=== PATIENT | male | born 1980 | race Caucasian/White ===

== ENCOUNTER 2017-01-21 20:43 | Emergency (ER) | payer SELFPAY ==
[~2017-01-21] VITALS: Ht 175.3 cm; Wt 86.0 kg
[~2017-01-21 20:43] MED LIST: MOBI15TA PO
[2017-01-21 20:44] VITALS: BP 185/92; PULSE 96; RESP 16; TEMP 98; O2SAT 96
[2017-01-21] MEDS ORDERED: DIVA250ER PO (21:16)
--- NOTE | 2017-01-21 21:27 | PD ---
HPI Chief Complaint: Psychiatric Symptoms Time Seen by Provider: 21:23 Travel History International Travel<30 days: No Contact w/Intl Traveler<30days: No Traveled to known affect area: No History of Present Illness HPI Patient comes in requesting psychiatric evaluation and possible refill of his medications. Patient states that he has not been his medications for approximately a month. Patient uncertain what his medications are supposed to be except for Depakote. Patient states he was getting his medications from [employer]. Patient states that he does this from time to time when he stops taking his medications as he starts feeling better and his medications make him "fat". Patient denies any homicidal or suicidal ideations though reports racing thoughts and going from feeling angry to calm. Patient states he is also supposed be on blood pressure medication but he stopped taking that as well because it made him feel sick. Denies any chest pain, shortness breath , fevers, nausea, vomiting, or abdominal pain. PFSH Past Medical History High Cholesterol: Yes Hypertension: Yes Social History Alcohol Use: No Tobacco Use: Yes (CIGARETTES, 1 PPD X 18 YEARS) Substance Use: No Allergies-Medications (Allergen,Severity, Reaction): Coded Allergies: No Known Allergies (Verified , 01/21/17) Reported Meds & Prescriptions Reported Meds & Active Scripts Active Active Prescriptions or Reported Medications Unobtainable Review of Systems Except as stated in HPI: all other systems reviewed are Neg Physical Exam Narrative GENERAL: Well-developed, well nourished, in no acute distress, and non-ill appearing. SKIN: Warm and dry. HEAD: Atraumatic. Normocephalic. EYES: Pupils equal and round. EOMI. No scleral icterus. No injection or drainage. ENT: No nasal bleeding or discharge. Mucous membranes pink and moist. NECK: Trachea midline. Supple. No nuclear rigidity. CARDIOVASCULAR: Regular rate and rhythm. No murmur appreciated. RESPIRATORY: No accessory muscle use. No respiratory distress. Clear to auscultation. Breath sounds equal bilaterally. MUSCULOSKELETAL: No obvious deformities. No clubbing. No cyanosis. No edema. Full range of motion. NEUROLOGICAL: Awake and alert. No obvious cranial nerve deficits. Motor grossly within normal limits. Normal speech. PSYCHIATRIC: Appropriate mood and affect; insight and judgment normal. Data Data Last Documented VS Vital Signs Date Time Temp Pulse Resp B/P Pulse Ox O2 Delivery O2 Flow Rate FiO2 01/21/17 22:26 72 16 154/66 97 Room Air 01/21/17 20:44 98.0 Orders Complete Blood Count With Diff (01/21/17 21:14) Comprehensive Metabolic Panel (01/21/17 21:14) Psych Screen (01/21/17 21:14) Drug Screen, Random Urine (01/21/17 21:14) Alcohol (Ethanol) (01/21/17 21:14) Salicylates (Aspirin) (01/21/17 21:14) Tylenol (Acetaminophen) (01/21/17 21:14) Valproic Acid (Depakene) (01/21/17 21:22) Labs Laboratory Tests Test 01/21/17 01/21/17 21:20 21:30 White Blood Count 9.0 TH/MM3 Red Blood Count 5.54 MIL/MM3 Hemoglobin 15.3 GM/DL Hematocrit 44.7 % Mean Corpuscular Volume 80.5 FL Mean Corpuscular Hemoglobin 27.7 PG Mean Corpuscular Hemoglobin 34.4 % Concent Red Cell Distribution Width 13.0 % Platelet Count 279 TH/MM3 Mean Platelet Volume 8.3 FL Neutrophils (%) (Auto) 58.8 % Lymphocytes (%) (Auto) 30.6 % Monocytes (%) (Auto) 6.3 % Eosinophils (%) (Auto) 3.2 % Basophils (%) (Auto) 1.1 % Neutrophils # (Auto) 5.3 TH/MM3 Lymphocytes # (Auto) 2.7 TH/MM3 Monocytes # (Auto) 0.6 TH/MM3 Eosinophils # (Auto) 0.3 TH/MM3 Basophils # (Auto) 0.1 TH/MM3 CBC Comment DIFF FINAL Differential Comment Sodium Level 139 MEQ/L Potassium Level 3.9 MEQ/L Chloride Level 104 MEQ/L Carbon Dioxide Level 28.3 MEQ/L Anion Gap 7 MEQ/L Blood Urea Nitrogen 15 MG/DL Creatinine 1.26 MG/DL Estimat Glomerular Filtration 65 ML/MIN Rate Random Glucose 102 MG/DL Calcium Level 9.1 MG/DL Total Bilirubin 0.3 MG/DL Aspartate Amino Transf 15 U/L (AST/SGOT) Alanine Aminotransferase 46 U/L (ALT/SGPT) Alkaline Phosphatase 71 U/L Total Protein 7.0 GM/DL Albumin 3.7 GM/DL Salicylates Level LESS THAN 1.7 MG/DL Acetaminophen Level LESS THAN 2.0 MCG/ML Valproic Acid (Depakene) Level 5 MCG/ML Ethyl Alcohol Level LESS THAN 3 MG/DL Urine Opiates Screen NEG Urine Barbiturates Screen NEG Urine Amphetamines Screen NEG Urine Benzodiazepines Screen NEG Urine Cocaine Screen NEG Urine Cannabinoids Screen NEG MDM Medical Decision Making Medical Screen Exam Complete: Yes Emergency Medical Condition: Yes Differential Diagnosis Bipolar, schizoaffective, adjustment disorder, electrolyte abnormality, medical noncompliance, other Narrative Course The patient has a prior history of hypertension and admits to noncompliance with their antihypertensive medications. The patient has no symptoms as well. The patient denied headache, changes in vision, nausea, vomiting, dizziness, weakness or loss of sensation. The patient denied and chest, back or abdominal pain. The patient also denied any shortness of breath, dyspnea on exertion, orthopnea or PND. The patient denies any edema to extremities. The patients blood pressures at time of medical clearance were at an acceptable level. I discussed with the patient the importance of continuing daily antihypertensive and to not skip doses or stop medications suddenly without instruction by their primary care physician. The patient was instructed to follow up and potential adjustment of blood pressure medications. Return warnings were given to the patient and the patient agreed with plan of care Patient was seen and examined. Labs were obtained and reviewed. Patient medically cleared for further treatment and evaluation by psych. Patient was evaluated by psych screener and was found to be stable follow-up as outpatient at [facility] for refill of his medications there. Patient in no obvious distress upon re-evaluation. All pertinent laboratory result(s) discussed with patient. Any questions/concerns in reference to patient diagnosis/condition discussed and clarified prior to patient's discharge. Reinforced sheer importance of close follow up with patient's primary physician or primary care clinic and [facility]. Instructed patient to return to ED immediately, if symptoms return/worsen. Pt showed understanding of above instructions. Further instructions and recommendations were detailed in discharge paperwork. Pt ambulated without difficulty out of ED at discharge. Diagnosis Primary Impression: Hypertension Qualified Code: I10 - Essential hypertension Referrals: [facility] Patient Instructions: Chronic Hypertension (ED), General Instructions Additional Instructions: Follow-up with your primary care physician this week for reevaluation of your blood pressure and possibly restarting your blood pressure medication. Follow- up with Lucian Eduardo for refills of your medication as discussed. Return to the emergency department if symptoms get worse. Scripts Unable to Obtain Active Prescriptions or Reported Meds Disposition: 01 DISCHARGE HOME Condition: Martin Guerra Jan 21, 2017 21:27
[2017-01-21 21:56] LABS: AUTOMATED NEUTROPHIL # 5.3 TH/MM3 (1.8-7.7); BASOPHIL # 0.1 TH/MM3 (0-0.2); BASOPHIL % 1.1 % (0.0-2.0); EOSINOPHIL # 0.3 TH/MM3 (0-0.4); EOSINOPHIL % 3.2 % (0.0-4.0); HEMATOCRIT 44.7 % (39.0-51.0); HEMO FLAGS DIFF FINAL; LYMPH % 30.6 % (9.0-44.0); LYMPHOCYTE # 2.7 TH/MM3 (1.0-4.8); MEAN CELL VOLUME 80.5 FL (80.0-100.0); MEAN CORPUSCULAR HEMOGLOBIN 27.7 PG (27.0-34.0); MEAN CORPUSCULAR HGB CONC 34.4 % (32.0-36.0); MONO % 6.3 % (0.0-8.0); NEUT % 58.8 % (16.0-70.0); PLATELET COUNT 279 TH/MM3 (150-450); RED BLOOD COUNT 5.54 MIL/MM3 (4.50-5.90)
[2017-01-21 22:06] LABS: ANION GAP 7 MEQ/L (5-15)
[2017-01-21 22:09] LABS: ACETAMINOPHEN LESS THAN 2.0 MCG/ML (10.0-30.0); ALKALINE PHOSPHATASE 71 U/L (45-117); ALT (GPT) 46 U/L (12-78); AST (GOT) 15 U/L (15-37); BICARBONATE 28.3 MEQ/L (21.0-32.0); BLOOD UREA NITROGEN 15 MG/DL (7-18); CHLORIDE 104 MEQ/L (98-107); GLOMERULAR FILTRATION RATE 65 ML/MIN (>89); POTASSIUM 3.9 MEQ/L (3.5-5.1); SODIUM (NA) 139 MEQ/L (136-145); TOTAL BILIRUBIN ADULT 0.3 MG/DL (0.2-1.0)
[2017-01-21 22:11] LABS: AMPHETAMINE, URINE NEG (NEG); BARBITURATES, URINE NEG (NEG); COCAINE, URINE NEG (NEG)
[2017-01-21 22:26] VITALS: BP 154/66; PULSE 72; RESP 16; O2SAT 97
== END 2017-01-22 05:03 | disposition home or self-care (01) ==
LOC: NEPA 20:43
DX: I10 Essential (primary) hypertension (principal); E78.00 Pure hypercholesterolemia, unspecified; F17.200 Nicotine dependence, unspecified, uncomplicated
CPT/HCPCS: 80053; 80164; 80307; 85025; 99284

== ENCOUNTER 2017-01-29 15:19 | Emergency (ER) | payer SELFPAY ==
[~2017-01-29] VITALS: Ht 175.3 cm; Wt 84.7 kg
[2017-01-29 15:32] VITALS: PULSE 89; RESP 16; TEMP 98.7; O2SAT 96
--- NOTE | 2017-01-29 16:24 | PD ---
HPI . poison amilcar exposure through the air Chief Complaint: Skin Problem Time Seen by Provider: 16:24 Travel History International Travel<30 days: No Contact w/Intl Traveler<30days: No Traveled to known affect area: No History of Present Illness HPI 36 are old male here with complaints of having poison amilcar exposure through the air. 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 Patient tells me that the area was itchy and he decided to scratch and search for some chigger bugs. He decided to put bleach into his skin to kill the so called bugs. He is here requesting steroid injections so that he does not get the poison amilcar into his lungs. He is using some type of topical cream to cover up the 3 lesions. When he cleaned them off there are 3 lesions (pustules) that are erythematous. There is no actual abscess formation. These appear to be small areas of cellulitis. He is c/o itching all over. There is no visible rash elsewhere. PFSH Past Medical History High Cholesterol: Yes Hypertension: Yes Social History Alcohol Use: No Tobacco Use: Yes (CIGARETTES, 1 PPD X 18 YEARS) Substance Use: Yes Allergies-Medications (Allergen,Severity, Reaction): Coded Allergies: No Known Allergies (Verified , 01/29/17) Reported Meds & Prescriptions Reported Meds & Active Scripts Active Bactrim DS (Sulfamethoxazole-Trimethoprim) 800-160 Mg Tab 1 Tab PO BID Bactroban Topical (Mupirocin) 2% Oint 1 Appl TOPICAL BID Medrol Dosepak (Methylprednisolone) 4 Mg Dspk 4 Mg PO DIRECTED Per Pharmacist direction Reported Fluoxetine (Fluoxetine HCl) 10 Mg Tab Unknown Dose PO HS Depakote ER (Divalproex Sodium) 250 Mg Yoselin 250 Mg PO DAILY Review of Systems General / Constitutional: No: Fever Eyes: No: Visual changes HENT: No: Headaches Cardiovascular: No: Chest Pain or Discomfort Respiratory: No: Shortness of Breath Gastrointestinal: No: Abdominal Pain Genitourinary: No: Dysuria Musculoskeletal: No: Pain Skin: Positive Rash, Positive Itching, Positive Other (3 small pustules on left inner thigh) Neurologic: No: Weakness Psychiatric: No: Depression Endocrine: No: Polydipsia Hematologic/Lymphatic: No: Easy Bruising Physical Exam Narrative GENERAL: AAO x 3, no acute distress, Well-nourished, well-developed patient. SKIN: Warm and dry. No visible rashes or bruising. 3 small pustules to the left inner thigh with surrounding erythema. HEAD: Normocephalic and atraumatic. EYES: No scleral icterus. No injection or drainage. ENT: No nasal drainage noted. Mucous membranes pink. Airway patent. NECK: Supple, trachea midline. No JVD. CARDIOVASCULAR: Regular rate and rhythm without murmurs, gallops, or rubs. RESPIRATORY: Breath sounds equal bilaterally. No accessory muscle use. No rhonchi or rales. GASTROINTESTINAL: Abdomen soft, non-tender, nondistended. EXTREMITIES: No cyanosis or edema. BACK: Nontender without obvious deformity. No CVA tenderness. PSYCH: AAO x 3, normal affect. Data Data Last Documented VS Vital Signs Date Time Temp Pulse Resp B/P Pulse Ox O2 Delivery O2 Flow Rate FiO2 01/29/17 15:32 98.7 89 16 96 Room Air [facility] Medical Decision Making Medical Screen Exam Complete: Yes Emergency Medical Condition: Yes Medical Record Reviewed: Yes Differential Diagnosis cellulitis, contact dermatitis, less likely abscess Narrative Course 36 are old male here with complaints of having poison amilcar exposure through the air. 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 Patient tells me that the area was itchy and he decided to scratch and search for some chigger bugs. He decided to put bleach into his skin to kill the so called bugs. He is here requesting steroid injections so that he does not get the poison amilcar into his lungs. He is using some type of topical cream to cover up the 3 lesions. When he cleaned them off there are 3 lesions (pustules) that are erythematous. There is no actual abscess formation. These appear to be small areas of cellulitis. He is c/o itching all over. There is no visible rash elsewhere. Patient seen and examined. He has 3 small pustules on his left inner thigh. There is no other rash anywhere on his body. I will treated with a course of Bactrim and Bactroban for cellulitis. I will also treat him with a Medrol Dosepak for possible contact dermatitis with his complaints of itching. I think some of this is psychosomatic. He has been advised follow up with primary care provider for further workup and treatment. Patient insisting to nurse that he wants steroid injections. She discussed with him that we have provided oral steroids. Patient verbalized understanding of instructions, questions were answered, and thanked me for their care. I advised them if their condition worsens, please return to the nearest emergency room for further care. Diagnosis Primary Impression: Cellulitis of left thigh Additional Impression: Contact dermatitis Qualified Code: L23.9 - Allergic contact dermatitis, unspecified trigger Additional Instructions: Please return to emergency department if your symptoms return or worsen. Follow up with your primary care provider. Take medications as prescribed. Med/Other Pt SpecificInfo: Prescription(s) given Scripts Sulfamethoxazole-Trimethoprim (Bactrim DS)800-160 Mg Tab1 Tab PO BID #20 TAB Ref 0 Prov:Carolyn Nolan MD 01/29/17 Mupirocin Topical (Bactroban Topical)2% Oint1 Appl TOPICAL BID #1 TUBE Ref 0 Prov:Carolyn Nolan MD 01/29/17 Methylprednisolone Dosepak (Medrol Dosepak)4 Mg Dspk4 Mg PO DIRECTED #1 DSPK Ref 0 Per Pharmacist direction Prov:Carolyn Nolan MD 01/29/17 Disposition: 01 DISCHARGE HOME Condition: Stable Liliam Camara Jan 29, 2017 16:24
[2017-01-29] MEDS ORDERED: FLUO10TA PO (16:27)
[2017-01-29] MEDS ORDERED: DIVA250ER PO (16:27)
[2017-01-29] MEDS ORDERED: BACT800T5 PO (16:35)
[2017-01-29] MEDS ORDERED: MEDR4PAK PO (16:35)
[2017-01-29] MEDS ORDERED: BACT2OIN TOPICAL (16:35)
== END 2017-01-29 16:51 | disposition home or self-care (01) ==
LOC: PHED 15:19 → PHEFT 16:51
DX: L03.116 Cellulitis of left lower limb (principal); L23.9 Allergic contact dermatitis, unspecified cause; I10 Essential (primary) hypertension; E78.00 Pure hypercholesterolemia, unspecified; F17.200 Nicotine dependence, unspecified, uncomplicated
CPT/HCPCS: 99282

== ENCOUNTER 2017-03-07 16:04 | Emergency (ER) | payer SELFPAY ==
[~2017-03-07] VITALS: Ht 175.3 cm; Wt 84.7 kg
[~2017-03-07 16:04] MED LIST changes: +BACT2OIN TOPICAL; +BACT800T5 PO; +DIVA250ER PO; +FLUO10TA PO; +MEDR4PAK PO; -MOBI15TA PO
[2017-03-07 16:09] VITALS: BP 157/105; PULSE 100; RESP 18; TEMP 98.1; O2SAT 97
--- NOTE | 2017-03-07 16:27 | PD ---
HPI Chief Complaint: Cold / Flu Symptoms Time Seen by Provider: 16:16 Travel History International Travel<30 days: No Contact w/Intl Traveler<30days: No Traveled to known affect area: No History of Present Illness HPI 36-year-old male presents to the emergency Department with complaints of upper respiratory infection symptoms including sore throat, postnasal drip, sinus congestion and headache, and productive cough. Patient states it's been going on since yesterday. He is a smoker of one pack per day. 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 Patient is felt like "poop" since waking up today. He denies nausea, vomiting, or diarrhea. He has no chest pain or shortness of breath. He has no known drug allergies. PFSH Past Medical History Bipolar Disorder: Yes (ANGER ISSUES ALSO PER PT) Cardiovascular Problems: Yes (HIGH CHOLESTEROL, HTN) High Cholesterol: Yes Hypertension: Yes Immunizations Current: Yes Social History Alcohol Use: No Tobacco Use: Yes (/2 PPD +DIP) Substance Use: Yes Allergies-Medications (Allergen,Severity, Reaction): Coded Allergies: No Known Allergies (Verified , 01/29/17) Reported Meds & Prescriptions Reported Meds & Active Scripts Active Flonase Allergy Relief Children Nasal [place] (Fluticasone Nasal [place]) 50 Mcg/ Act [place] 2 [place] EACH NARE DAILY 50 mcg/spray Amoxicillin 875 Mg Tab 875 Mg PO BID Reported Strattera (Atomoxetine HCl) 10 Mg Cap 10 Mg PO DAILY Depakote ER (Divalproex Sodium) 250 Mg Yoselin 250 Mg PO DAILY Review of Systems Except as stated in HPI: all other systems reviewed are Neg General / Constitutional: Positive: Chills, No: Fever Eyes: No: Visual changes HENT: Positive: Headaches, Sore Throat, Rhinitis, Rhinorrhea, Congestion, No: Vertigo, Lightheadedness, Nosebleed, Neck Stiffness, Neck Pain, Gingival Bleeding, Dental Difficulties, Ear Discharge, Earache Cardiovascular: No: Chest Pain or Discomfort Respiratory: Positive: Cough, No: Shortness of Breath, Wheezing, Sneezing Gastrointestinal: No: Nausea, Vomiting, Diarrhea, Abdominal Pain Genitourinary: No: Dysuria Musculoskeletal: No: Pain Skin: No Rash Neurologic: No: Weakness Psychiatric: No: Depression Endocrine: No: Polydipsia Hematologic/Lymphatic: No: Easy Bruising Physical Exam Narrative GENERAL: Patient appears in no acute distress. SKIN: Warm and dry. Normal color. Normal turgor. HEAD: Atraumatic. Normocephalic. Patient has moderate sinus tenderness in both frontal and maxillary sinuses. EYES: Pupils equal and round. No scleral icterus. No injection or drainage. ENT: No nasal bleeding or discharge. Mucous membranes pink and moist. TMs are clear bilaterally. Patient has mild swelling and cobblestoning in the posterior pharynx with moderate injection and postnasal drip noted. Uvula is midline. No significant tonsillitis. NECK: Trachea midline. Neck is supple without significant lymphadenopathy or tenderness. CARDIOVASCULAR: Regular rate and rhythm. RESPIRATORY: No accessory muscle use. Coarse breath sounds throughout to auscultation. Breath sounds equal bilaterally. MUSCULOSKELETAL: Extremities without clubbing, cyanosis, or edema. No obvious deformities. NEUROLOGICAL: Awake and alert. No obvious cranial nerve deficits. Motor grossly within normal limits. Five out of 5 muscle strength in the arms and legs. Normal speech. PSYCHIATRIC: Appropriate mood and affect; insight and judgment normal. Data Data Last Documented VS Vital Signs Date Time Temp Pulse Resp B/P Pulse Ox O2 Delivery O2 Flow Rate FiO2 03/07/17 16:09 98.1 100 18 157/105 97 MDM Medical Decision Making Medical Screen Exam Complete: Yes Emergency Medical Condition: Yes Differential Diagnosis Upper extremity infection. Pharyngitis. Sinusitis. Postnasal drip. Cough. Narrative Course Patient is medically stable at time of exam. Patient will be treated for sinusitis with amoxicillin 875 twice a day 10 days. Also start Flonase nasal spray 2 sprays each nostril daily. Work note is given. Patient should follow with primary care physician or return to emergency Department with worsening symptoms as needed. Patient is recommended to quit smoking as soon as possible. Diagnosis Primary Impression: Sinusitis, acute Qualified Code: J01.40 - Acute non-recurrent pansinusitis Referrals: [facility] Departure Forms: Work Release Enter return to work date: March 08, 2017 Additional Instructions: Patient will be treated for sinusitis with amoxicillin 875 twice a day 10 days. Also start Flonase nasal spray 2 sprays each nostril daily. Work note is given. Patient should follow with primary care physician or return to emergency Department with worsening symptoms as needed. Patient is recommended to quit smoking as soon as possible. Med/Other Pt SpecificInfo: Prescription(s) given Scripts Fluticasone Nasal [place] (Flonase Allergy Relief Children Nasal [place])50 Mcg/Act Spray2 [place] EACH NARE DAILY #1 BOTTLE 50 mcg/spray Prov:Kiarra Ramirez DO 03/07/17 Amoxicillin 875 Mg [id number] Mg PO BID #20 TAB Prov:Kiarra Ramirez DO 03/07/17 Disposition: 01 DISCHARGE HOME Condition: Stable Alan Rhodes March 07, 2017 16:27
[2017-03-07] MEDS ORDERED: AMOX875T PO (16:28)
[2017-03-07] MEDS ORDERED: FLUT1SPR9 EACH NARE (16:28)
[2017-03-07] MEDS ORDERED: ATOM10 PO (16:28)
== END 2017-03-07 16:40 | disposition home or self-care (01) ==
LOC: PHEFT 16:04
DX: J01.90 Acute sinusitis, unspecified (principal); F17.210 Nicotine dependence, cigarettes, uncomplicated; I10 Essential (primary) hypertension; E78.00 Pure hypercholesterolemia, unspecified
CPT/HCPCS: 99283

== ENCOUNTER 2017-04-25 13:27 | Emergency (ER) | payer OTHER ==
[~2017-04-25] VITALS: Ht 175.3 cm; Wt 82.2 kg
[~2017-04-25 13:27] MED LIST changes: +AMOX875T PO; +ATOM10 PO; -BACT2OIN TOPICAL; -BACT800T5 PO; -FLUO10TA PO; +FLUT1SPR9 EACH NARE; -MEDR4PAK PO
[2017-04-25 13:30] VITALS: BP 140/94; PULSE 89; RESP 18; TEMP 98.2; O2SAT 94
[2017-04-25] MEDS ORDERED: VENTAER INH (14:06)
[2017-04-25] MEDS ORDERED: BENZ100 PO (14:06)
--- NOTE | 2017-04-25 14:07 | PD ---
HPI Chief Complaint: Respiratory Symptoms Time Seen by Provider: 13:57 Travel History International Travel<30 days: No Contact w/Intl Traveler<30days: No Traveled to known affect area: No History of Present Illness HPI 36-year-old male presents emergency department for evaluation of cough and low back pain. Symptom onset 3 days ago. He reports a low back pain is chronic. He reports roommate with similar upper respiratory symptoms. He reports the cough is nonproductive. He denies fever or chills. Associated symptoms nasal congestion and mild sore throat. He reports he had an episode of wheezing and shortness of breath yesterday with coughing episode. The symptoms have improved today. He is a smoker. He denies history of asthma who reports he used albuterol inhalers in the past with respiratory infections. PFSH Past Medical History Bipolar Disorder: Yes (ANGER ISSUES ALSO PER PT) Cardiovascular Problems: Yes (HIGH CHOLESTEROL, HTN) High Cholesterol: Yes Hypertension: Yes Immunizations Current: Yes Influenza Vaccination: No Social History Alcohol Use: Yes (WEEKENDS) Tobacco Use: Yes (2PPD) Substance Use: Yes Allergies-Medications (Allergen,Severity, Reaction): Coded Allergies: No Known Allergies (Verified , 04/25/17) Reported Meds & Prescriptions Reported Meds & Active Scripts Active No Active Prescriptions or Reported Medications Review of Systems Except as stated in HPI: all other systems reviewed are Neg General / Constitutional: No: Fever Physical Exam Narrative GENERAL: Well-nourished, well-developed patient. No acute distress. SKIN: Focused skin assessment warm/dry. HEAD: Normocephalic. EYES: No scleral icterus. No injection or drainage. NECK: Supple, trachea midline. No JVD or lymphadenopathy. CARDIOVASCULAR: Regular rate and rhythm without murmurs, gallops, or rubs. RESPIRATORY: Breath sounds equal bilaterally. No accessory muscle use. No wheezing rhonchi or rales. GASTROINTESTINAL: Abdomen soft, non-tender, nondistended. MUSCULOSKELETAL: No cyanosis, or edema. BACK: without obvious deformity. No CVA tenderness. Bilateral lumbar tenderness. No midline spinal tenderness. Data Data Last Documented VS Vital Signs Date Time Temp Pulse Resp B/P Pulse Ox O2 Delivery O2 Flow Rate FiO2 04/25/17 13:30 98.2 89 18 140/94 94 MDM Medical Decision Making Medical Screen Exam Complete: Yes Emergency Medical Condition: Yes Differential Diagnosis Viral bronchitis, URI, chronic low back pain Narrative Course 36-year-old male presents emergency department for evaluation of nonproductive cough 3 days. He reports he had an episode last night of some shortness of breath, wheezing during coughing episode. He reports using albuterol inhalers in the past with a first-degree infections. Patient is smoker. Patient's physical exam is reassuring. He appears to have viral URI. He does have some bilateral lumbar or spinous muscle tenderness he reports this is chronic. Diagnosis Primary Impression: URI (upper respiratory infection) Qualified Code: J06.9 - Upper respiratory tract infection, unspecified type Referrals: [facility] Benzonatate (Tessalon Perles)100 Mg [id number] Mg PO TID PRN (COUGH) #15 CAP Ref 0 Prov:Lisa Aaron 04/25/17 Albuterol 18 GM Inh (Ventolin Hfa 18 GM Inh)90 Mcg/Act Aer2 Puff INH Q4H PRN ( SHORTNESS OF BREATH) #1 INHALER Ref 0 Prov:Lisa Aaron 04/25/17 Disposition: 01 DISCHARGE HOME Condition: Stable Lisa Aaron Apr 25, 2017 14:07
== END 2017-04-25 14:18 | disposition home or self-care (01) ==
LOC: PHEFT 13:27
DX: J06.9 Acute upper respiratory infection, unspecified (principal); M54.5 Low back pain; G89.29 Other chronic pain; F31.9 Bipolar disorder, unspecified; I10 Essential (primary) hypertension; E78.00 Pure hypercholesterolemia, unspecified; F17.210 Nicotine dependence, cigarettes, uncomplicated
CPT/HCPCS: 99284

== ENCOUNTER 2017-05-09 00:27 | Emergency (ER) | payer SELFPAY ==
[~2017-05-09] VITALS: Ht 175.3 cm; Wt 82.8 kg
[~2017-05-09 00:27] MED LIST changes: -AMOX875T PO; -ATOM10 PO; +BENZ100 PO; -DIVA250ER PO; -FLUT1SPR9 EACH NARE; +VENTAER INH
[2017-05-09 00:30] VITALS: BP 142/92; PULSE 101; RESP 20; TEMP 98.1; O2SAT 97
[2017-05-09] MEDS ORDERED: SODIUM CHLOR 0.9% 1000 ML INJ 1,000 ML IV SCH (00:49)
--- NOTE | 2017-05-09 00:53 | PD ---
HPI Chief Complaint: Flank/Kidney Pain Time Seen by Provider: 00:36 Travel History International Travel<30 days: No Contact w/Intl Traveler<30days: No Traveled to known affect area: No History of Present Illness HPI 36 years old male complains of right low back pain. Patient states that the pain started 2 days ago. Patient stated sharp stabbing pain localized to right low back area. Patient states the pain radiates to the right low quadrant of the abdomen. Patient states that he has intermittent nausea vomiting with the pain. Patient denies any dysuria or frequency. Patient denies any fever chills. Patient states that he has history kidney stone many years ago. On a scale of 1-10 the pain is a 10. PFSH Past Medical History Bipolar Disorder: Yes (ANGER ISSUES ALSO PER PT) Cardiovascular Problems: Yes (HIGH CHOLESTEROL, HTN) High Cholesterol: Yes Hypertension: Yes Immunizations Current: Yes Tetanus Vaccination: < 5 Years Influenza Vaccination: No Social History Alcohol Use: Yes (Occasionally) Tobacco Use: Yes (1-2PPD) Substance Use: Yes ("Marijuana occasionally") Allergies-Medications (Allergen,Severity, Reaction): Coded Allergies: No Known Allergies (Verified , 05/09/17) Reported Meds & Prescriptions Reported Meds & Active Scripts Active Tessalon Perles (Benzonatate) 100 Mg Cap 200 Mg PO TID PRN Ventolin Hfa 18 GM Inh (Albuterol Sulfate) 90 Mcg/Act Aer 2 Puff INH Q4H PRN Review of Systems General / Constitutional: No: Fever Eyes: No: Visual changes HENT: No: Headaches Cardiovascular: No: Chest Pain or Discomfort Respiratory: No: Shortness of Breath Gastrointestinal: Positive: Nausea, Vomiting, Abdominal Pain Genitourinary: No: Dysuria Musculoskeletal: No: Pain Skin: No Rash Neurologic: No: Weakness Psychiatric: No: Depression Endocrine: No: Polydipsia Hematologic/Lymphatic: No: Easy Bruising Physical Exam Narrative GENERAL: Well-nourished, well-developed patient. SKIN: Focused skin assessment warm/dry. HEAD: Normocephalic. EYES: No scleral icterus. No injection or drainage. NECK: Supple, trachea midline. No JVD or lymphadenopathy. CARDIOVASCULAR: Regular rate and rhythm without murmurs, gallops, or rubs. RESPIRATORY: Breath sounds equal bilaterally. No accessory muscle use. GASTROINTESTINAL: Abdomen soft, nondistended. Patient has mild tenderness on palpation right lower quadrant of the abdomen. No rebound tenderness. No mass. MUSCULOSKELETAL: No cyanosis, or edema. BACK: Patient has moderate tenderness on palpation right lower lumbar area, without obvious deformity. No CVA tenderness. Neurologic exam normal. Data Data Last Documented VS Vital Signs Date Time Temp Pulse Resp B/P Pulse Ox O2 Delivery O2 Flow Rate FiO2 05/09/17 01:00 18 96 Room Air 05/09/17 00:30 98.1 101 142/92 Orders Basic Metabolic Panel (Bmp) (05/09/17 00:49) Complete Blood Count With Diff (05/09/17 00:49) Urinalysis - C+S If Indicated (05/09/17 00:49) Ct Abd/Pel W/O Iv Contrast (05/09/17 00:49) Iv Access Insert/Monitor (05/09/17 00:49) Ecg Monitoring (05/09/17 00:49) Oximetry (05/09/17 00:49) Ondansetron Inj (Zofran Inj) (05/09/17 01:00) Sodium Chlor 0.9% 1000 Ml Inj (Ns 1000 M (05/09/17 00:49) Ketorolac Inj (Toradol Inj) (05/09/17 01:00) Morphine Inj (Morphine Inj) (05/09/17 01:15) Labs Laboratory Tests Test 05/09/17 01:00 White Blood Count 9.6 TH/MM3 Red Blood Count 5.77 MIL/MM3 Hemoglobin 15.5 GM/DL Hematocrit 46.5 % Mean Corpuscular Volume 80.7 FL Mean Corpuscular Hemoglobin 26.9 PG Mean Corpuscular Hemoglobin 33.3 % Concent Red Cell Distribution Width 12.9 % Platelet Count 293 TH/MM3 Mean Platelet Volume 8.9 FL Neutrophils (%) (Auto) 60.7 % Lymphocytes (%) (Auto) 25.9 % Monocytes (%) (Auto) 8.1 % Eosinophils (%) (Auto) 2.8 % Basophils (%) (Auto) 2.5 % Neutrophils # (Auto) 5.8 TH/MM3 Lymphocytes # (Auto) 2.5 TH/MM3 Monocytes # (Auto) 0.8 TH/MM3 Eosinophils # (Auto) 0.3 TH/MM3 Basophils # (Auto) 0.2 TH/MM3 CBC Comment DIFF FINAL Differential Comment Urine Color YELLOW Urine Turbidity CLEAR Urine pH 5.5 Urine Specific [place] 1.025 Urine Protein NEG mg/dL Urine Glucose (UA) NEG mg/dL Urine Ketones NEG mg/dL Urine Occult Blood LARGE Urine Nitrite NEG Urine Bilirubin NEG Urine Leukocyte Esterase NEG Urine RBC 15-19 /hpf Urine WBC 3-5 /hpf Urine Squamous Epithelial 0-5 /hpf Cells Urine Hyaline Casts 0-2 /lpf Urine Mucus MOD /lpf Microscopic Urinalysis Comment CULT NOT INDICATED Sodium Level 143 MEQ/L Potassium Level 4.1 MEQ/L Chloride Level 111 MEQ/L Carbon Dioxide Level 24.5 MEQ/L Anion Gap 8 MEQ/L Blood Urea Nitrogen 13 MG/DL Creatinine 1.20 MG/DL Estimat Glomerular Filtration 69 ML/MIN Rate Random Glucose 94 MG/DL Calcium Level 9.0 MG/DL [facility] Medical Decision Making Medical Screen Exam Complete: Yes Emergency Medical Condition: Yes Interpretation(s) Last Impressions Abdomen/Pelvis CT 05/09/17 0049 Signed Impressions: Service Date/Time: Tuesday, May 09, 2017 01:03 - CONCLUSION: 1. Minimal obstructive uropathy on the left related to a distal ureteral calculus. 2. Small scattered nonobstructing bilateral renal stones. No ureteral stone or obstruction on the right. Aren Jain MD Differential Diagnosis Differential diagnosis including nephrolithiasis, pyelonephritis, musculoskeletal, appendicitis, colitis, UTI. Narrative Course 36 years old male with right low back pain and right low quadrant abdominal pain. History of kidney stone. Normal saline solution 1 25 cc an hour. Morphine 2 mg IV. Toradol 30 mg IV. Zofran 4 mg IV. Diagnosis Primary Impression: Right flank pain Additional Impression: Nephrolithiasis Patient Instructions: General Instructions Additional Instructions: Take medications as needed for pain. Follow-up with personal physician and urologist. Return if intractable pain, fever, persistent vomiting. Med/Other Pt SpecificInfo: Prescription(s) given Scripts Ondansetron Odt (Zofran Odt)4 Mg Tab4 Mg SL Q6HR PRN (Nausea/Vomiting) #10 TAB Ref 0 Prov:Robbie Roberts MD 05/09/17 Meloxicam (Mobic)15 Mg Tab15 Mg PO DAILY #20 TAB Ref 0 Prov:Robbie Roberts MD 05/09/17 Methocarbamol (Robaxin)750 Mg Bfs099 Mg PO QID #40 TAB Ref 0 Prov:Robbie Roberts MD 05/09/17 Tamsulosin (Flomax)0.4 Mg Cap0.4 Mg PO HS #10 CAP Ref 0 Prov:Robbie Roberts MD 05/09/17 Disposition: 01 DISCHARGE HOME Condition: Stable Robibe Roberts MD May 09, 2017 00:53
[2017-05-09 01:00] VITALS: BP 148/92; PULSE 90; RESP 18; O2SAT 96
[2017-05-09] MEDS ORDERED: MORPHINE SULFATE 4 MG/ML INJ IV PUSH ONE (01:00)
[2017-05-09] MEDS ORDERED: ONDANSETRON HCL 4 MG/2 ML VIAL IVP ONE (01:00)
[2017-05-09] MEDS ORDERED: KETOROLAC TROMETHAMINE 30 MG/ML (IVP) VIAL IVP ONE (01:00)
[2017-05-09 01:07] LABS: AUTOMATED NEUTROPHIL # 5.8 TH/MM3 (1.8-7.7); BASOPHIL # 0.2 TH/MM3 (0-0.2); BASOPHIL % 2.5 % (0.0-2.0); EOSINOPHIL # 0.3 TH/MM3 (0-0.4); EOSINOPHIL % 2.8 % (0.0-4.0); HEMATOCRIT 46.5 % (39.0-51.0); HEMO FLAGS DIFF FINAL; LYMPH % 25.9 % (9.0-44.0); LYMPHOCYTE # 2.5 TH/MM3 (1.0-4.8); MEAN CELL VOLUME 80.7 FL (80.0-100.0); MEAN CORPUSCULAR HEMOGLOBIN 26.9 PG (27.0-34.0); MEAN CORPUSCULAR HGB CONC 33.3 % (32.0-36.0); MONO % 8.1 % (0.0-8.0); NEUT % 60.7 % (16.0-70.0); PLATELET COUNT 293 TH/MM3 (150-450); RED BLOOD COUNT 5.77 MIL/MM3 (4.50-5.90); RED CELL DISTRIBUTION WIDTH 12.9 % (11.6-17.2); WHITE BLOOD COUNT 9.6 TH/MM3 (4.0-11.0)
[2017-05-09 01:09] LABS: BLOOD, URINE LARGE (NEG); GLUCOSE,URINE NEG (NEG); KETONE, URINE NEG (NEG); NITRITE,URINE NEG (NEG); PH, URINE 5.5 (5.0-8.5)
[2017-05-09 01:14] LABS: URINE COLOR YELLOW (YELLW/STRAW)
[2017-05-09 01:15] LABS: MUCUS URINE MOD /lpf (OCC); RBC, URINE 15-19 /hpf (0-3)
[2017-05-09] MEDS ORDERED: MORPHINE SULFATE 8 MG/ML INJ IV PUSH ONE (01:15)
[2017-05-09 01:16] LABS: COMMENT (UR) CULT NOT INDICATED; CULTURE IF INDICATED CULT NOT INDICATED; HYALINE CAST, URINE 0-2 /lpf (RARE); POTASSIUM 4.1 MEQ/L (3.5-5.1); SQUAMOUS EPITHELIAL CELL URINE 0-5 /hpf (0-5)
[2017-05-09 01:19] LABS: BICARBONATE 24.5 MEQ/L (21.0-32.0)
--- NOTE | 2017-05-09 01:29 | RADRPT ---
EXAM DATE/TIME: 05/09/2017 01:03 [place] COMPARISON: No previous studies available for comparison. INDICATIONS : Right lower back pain for two days. ORAL CONTRAST: No oral contrast ingested. RADIATION DOSE: 16.19 CTDIvol (mGy) MEDICAL HISTORY : Hypertension. SURGICAL HISTORY : None. ENCOUNTER: Initial ACUITY: 2 days PAIN SCALE: 10/10 LOCATION: Right lower back TECHNIQUE: Volumetric scanning of the abdomen and pelvis was performed. Using automated exposure control and ad justment of the mA and/or kV according to patient size, radiation dose was kept as low as reasonably achievable to obtain optimal diagnostic quality images. DICOM format image data is available electro nically for review and comparison. FINDINGS: LOWER LUNGS: The visualized lower lungs are clear. LIVER: Homogeneous density without lesion. There is no dilation of the biliary tree. No calcified gallston es. SPLEEN: Normal size without lesion. PANCREAS: Within normal limits. KIDNEYS: There is a 2 mm stone of the distal left ureter without significant hydronephrosis or hydroureter. Th ere are several scattered sub-3 mm nonobstructing stones of both kidneys noted. No ureteral calculus demonstrated on the right. ADRENAL GLANDS: Within normal limits. VASCULAR: There is no aortic aneurysm. BOWEL/MESENTERY: The stomach, small bowel, and colon demonstrate no acute abnormality. There is no free intraperitone al air or fluid. Appendix well visualized, normal. ABDOMINAL WALL: Within normal limits. RETROPERITONEUM: There is no lymphadenopathy. BLADDER: No wall thickening or mass. REPRODUCTIVE: Within normal limits. INGUINAL: There is no lymphadenopathy or hernia. MUSCULOSKELETAL: Within normal limits for patient age. CONCLUSION: 1. Minimal obstructive uropathy on the left related to a distal ureteral calculus. 2. Small scattered nonobstructing bilateral renal stones. No ureteral stone or obstruction on the rig ht. Aren Jain MD on May 09, 2017 at 1:23 Board Certified Radiologist. This report was verified electronically.
[2017-05-09] MEDS ORDERED: ZOFR4TAB3 SL (01:44)
[2017-05-09] MEDS ORDERED: ROBA750T PO (01:44)
[2017-05-09] MEDS ORDERED: MOBI15TA PO (01:44)
[2017-05-09] MEDS ORDERED: TAMS5CAP PO (01:44)
[2017-05-09 02:02] VITALS: BP 158/90; RESP 18
== END 2017-05-09 02:02 | disposition home or self-care (01) ==
LOC: PHED 00:27
DX: R10.31 Right lower quadrant pain (principal); N20.2 Calculus of kidney with calculus of ureter; I10 Essential (primary) hypertension
CPT/HCPCS: 74176; 80048; 81001; 85025; 96361; 96374; 96375; 99285; J1885; J2270; J2405; J7030

== ENCOUNTER 2017-06-02 14:08 | Emergency (ER) | payer OTHER ==
[~2017-06-02] VITALS: Ht 175.3 cm; Wt 80.0 kg
[~2017-06-02 14:08] MED LIST changes: -BENZ100 PO; +MOBI15TA PO; +ROBA750T PO; +TAMS5CAP PO; -VENTAER INH; +ZOFR4TAB3 SL
[2017-06-02 14:10] VITALS: BP 178/92; PULSE 108; RESP 15; TEMP 98.2; O2SAT 99
--- NOTE | 2017-06-02 14:30 | PD ---
HPI Chief Complaint: Suicide Ideation/Attempt Time Seen by Provider: 14:19 Travel History International Travel<30 days: No Contact w/Intl Traveler<30days: No Traveled to known affect area: No History of Present Illness HPI The patient is a 36-year-old male who presents to the emergency department via private vehicle for psychiatric evaluation. The patient has a history of depression and is currently taking Strattera and Depakote. The patient states he has a history of depression since childhood, has had increasing depression recently after he lost his job. The patient also states she has difficulty seeing his kids every other weekend and this is increasing his depression. He does admit to using drugs including Xanax, Lortab, and occasionally alcohol. He denies any IV drug use. The patient does have thoughts of suicide, intermittently thinks of taking his pills in an overdose attempt. He does have a history of previous suicide attempts including hanging himself and slitting his wrist. He denies any homicidal ideation. He denies any hallucinations or delusions. PFSH Past Medical History Bipolar Disorder: Yes (ANGER ISSUES ALSO PER PT) Cardiovascular Problems: Yes (HIGH CHOLESTEROL, HTN) High Cholesterol: Yes Hypertension: Yes Immunizations Current: Yes Past Surgical History Surgical History: No Previous Surgery Social History Alcohol Use: Yes (Occasionally) Tobacco Use: Yes (1-2PPD) Substance Use: Yes ("Marijuana occasionally") Allergies-Medications (Allergen,Severity, Reaction): Coded Allergies: No Known Allergies (Verified , 05/09/17) Reported Meds & Prescriptions Reported Meds & Active Scripts Active Zofran Odt (Ondansetron Odt) 4 Mg Tab 4 Mg SL Q6HR PRN Mobic (Meloxicam) 15 Mg Tab 15 Mg PO DAILY Robaxin (Methocarbamol) 750 Mg Tab 750 Mg PO QID Flomax (Tamsulosin HCl) 0.4 Mg Cap 0.4 Mg PO HS Review of Systems Except as stated in HPI: all other systems reviewed are Neg Cardiovascular: No: Chest Pain or Discomfort Respiratory: No: Shortness of Breath Gastrointestinal: No: Nausea, Vomiting, Abdominal Pain Psychiatric: Positive: Depression, Suicidal Ideations, Substance Abuse, No: Homicidal Ideation Physical Exam Narrative GENERAL: Awake, alert, pleasant 36 year old male who appears his stated age and is in no acute respiratory distress. SKIN: Focused skin assessment warm/dry. HEAD: Atraumatic. Normocephalic. EYES: Pupils equal and round. 4 mm bilateral and reactive. ENT: No nasal bleeding or discharge. Breath smells of tobacco. NECK: Trachea midline. No JVD. CARDIOVASCULAR: Regular rate and rhythm. No murmur appreciated. RESPIRATORY: No accessory muscle use. Clear to auscultation. Breath sounds equal bilaterally. MUSCULOSKELETAL: No obvious deformities. No clubbing. No cyanosis. No edema. NEUROLOGICAL: Awake and alert. No obvious cranial nerve deficits. Motor grossly within normal limits. Normal speech. Nonfocal. Oriented 4. PSYCHIATRIC: Flat affect. Insight and judgment are normal. Data Data Last Documented VS Vital Signs Date Time Temp Pulse Resp B/P Pulse Ox O2 Delivery O2 Flow Rate FiO2 06/02/17 14:49 100 Room Air 06/02/17 14:10 98.2 108 15 178/92 Orders Complete Blood Count With Diff (06/02/17 14:25) Comprehensive Metabolic Panel (06/02/17 14:25) Valproic Acid (Depakene) (06/02/17 14:25) Psych Screen (06/02/17 14:25) Drug Screen, Random Urine (06/02/17 14:25) Alcohol (Ethanol) (06/02/17 14:25) Labs Laboratory Tests Test 06/02/17 14:40 White Blood Count 9.1 TH/MM3 Red Blood Count 5.93 MIL/MM3 Hemoglobin 16.3 GM/DL Hematocrit 47.6 % Mean Corpuscular Volume 80.3 FL Mean Corpuscular Hemoglobin 27.5 PG Mean Corpuscular Hemoglobin 34.2 % Concent Red Cell Distribution Width 13.0 % Platelet Count 235 TH/MM3 Mean Platelet Volume 8.7 FL Neutrophils (%) (Auto) 67.7 % Lymphocytes (%) (Auto) 21.2 % Monocytes (%) (Auto) 7.2 % Eosinophils (%) (Auto) 2.6 % Basophils (%) (Auto) 1.3 % Neutrophils # (Auto) 6.2 TH/MM3 Lymphocytes # (Auto) 1.9 TH/MM3 Monocytes # (Auto) 0.7 TH/MM3 Eosinophils # (Auto) 0.2 TH/MM3 Basophils # (Auto) 0.1 TH/MM3 CBC Comment DIFF FINAL Differential Comment Sodium Level 138 MEQ/L Potassium Level 4.0 MEQ/L Chloride Level 103 MEQ/L Carbon Dioxide Level 25.4 MEQ/L Anion Gap 10 MEQ/L Blood Urea Nitrogen 8 MG/DL Creatinine 0.92 MG/DL Estimat Glomerular Filtration 93 ML/MIN Rate Random Glucose 94 MG/DL Calcium Level 9.4 MG/DL Total Bilirubin 0.4 MG/DL Aspartate Amino Transf 16 U/L (AST/SGOT) Alanine Aminotransferase 59 U/L (ALT/SGPT) Alkaline Phosphatase 65 U/L Total Protein 7.7 GM/DL Albumin 4.0 GM/DL Urine Opiates Screen NEG Urine Barbiturates Screen NEG Valproic Acid (Depakene) Level 23 MCG/ML Urine Amphetamines Screen NEG Urine Benzodiazepines Screen NEG Urine Cocaine Screen NEG Urine Cannabinoids Screen NEG Ethyl Alcohol Level LESS THAN 3 MG/DL MDM Medical Decision Making Medical Screen Exam Complete: Yes Emergency Medical Condition: Yes Medical Record Reviewed: Yes Interpretation(s) Laboratory Tests Test 06/02/17 14:40 White Blood Count 9.1 TH/MM3 Red Blood Count 5.93 MIL/MM3 Hemoglobin 16.3 GM/DL Hematocrit 47.6 % Mean Corpuscular Volume 80.3 FL Mean Corpuscular Hemoglobin 27.5 PG Mean Corpuscular Hemoglobin 34.2 % Concent Red Cell Distribution Width 13.0 % Platelet Count 235 TH/MM3 Mean Platelet Volume 8.7 FL Neutrophils (%) (Auto) 67.7 % Lymphocytes (%) (Auto) 21.2 % Monocytes (%) (Auto) 7.2 % Eosinophils (%) (Auto) 2.6 % Basophils (%) (Auto) 1.3 % Neutrophils # (Auto) 6.2 TH/MM3 Lymphocytes # (Auto) 1.9 TH/MM3 Monocytes # (Auto) 0.7 TH/MM3 Eosinophils # (Auto) 0.2 TH/MM3 Basophils # (Auto) 0.1 TH/MM3 CBC Comment DIFF FINAL Differential Comment Sodium Level 138 MEQ/L Potassium Level 4.0 MEQ/L Chloride Level 103 MEQ/L Carbon Dioxide Level 25.4 MEQ/L Anion Gap 10 MEQ/L Blood Urea Nitrogen 8 MG/DL Creatinine 0.92 MG/DL Estimat Glomerular Filtration 93 ML/MIN Rate Random Glucose 94 MG/DL Calcium Level 9.4 MG/DL Total Bilirubin 0.4 MG/DL Aspartate Amino Transf 16 U/L (AST/SGOT) Alanine Aminotransferase 59 U/L (ALT/SGPT) Alkaline Phosphatase 65 U/L Total Protein 7.7 GM/DL Albumin 4.0 GM/DL Urine Opiates Screen NEG Urine Barbiturates Screen NEG Valproic Acid (Depakene) Level 23 MCG/ML Urine Amphetamines Screen NEG Urine Benzodiazepines Screen NEG Urine Cocaine Screen NEG Urine Cannabinoids Screen NEG Ethyl Alcohol Level LESS THAN 3 MG/DL Differential Diagnosis Differential diagnosis includes substance induced mood disorder, depressive disorder NOS, mood disorder NOS, adjustment reaction, stress reaction, bipolar affective disorder. Narrative Course Labs were drawn and sent. Psychiatric evaluation was ordered. Labs are unremarkable. Valproic acid is 23. Tox screen is negative. Patient is medically cleared to be evaluated by psychiatry. Disposition as per psych. Diagnosis Primary Impression: Depressive disorder Condition: Stable Dany Keys MD Jun 02, 2017 14:30
[2017-06-02 15:04] LABS: AUTOMATED NEUTROPHIL # 6.2 TH/MM3 (1.8-7.7); BASOPHIL # 0.1 TH/MM3 (0-0.2); BASOPHIL % 1.3 % (0.0-2.0); EOSINOPHIL # 0.2 TH/MM3 (0-0.4); EOSINOPHIL % 2.6 % (0.0-4.0); HEMATOCRIT 47.6 % (39.0-51.0); HEMO FLAGS DIFF FINAL; LYMPH % 21.2 % (9.0-44.0); LYMPHOCYTE # 1.9 TH/MM3 (1.0-4.8); MEAN CELL VOLUME 80.3 FL (80.0-100.0); MEAN CORPUSCULAR HEMOGLOBIN 27.5 PG (27.0-34.0); MEAN CORPUSCULAR HGB CONC 34.2 % (32.0-36.0); MONO % 7.2 % (0.0-8.0); NEUT % 67.7 % (16.0-70.0); PLATELET COUNT 235 TH/MM3 (150-450); RED BLOOD COUNT 5.93 MIL/MM3 (4.50-5.90); WHITE BLOOD COUNT 9.1 TH/MM3 (4.0-11.0)
[2017-06-02 15:24] LABS: ALT (GPT) 59 U/L (12-78); ANION GAP 10 MEQ/L (5-15); AST (GOT) 16 U/L (15-37); BICARBONATE 25.4 MEQ/L (21.0-32.0); BLOOD UREA NITROGEN 8 MG/DL (7-18); CHLORIDE 103 MEQ/L (98-107); GLOMERULAR FILTRATION RATE 93 ML/MIN (>89); SODIUM (NA) 138 MEQ/L (136-145)
[2017-06-02 15:25] LABS: AMPHETAMINE, URINE NEG (NEG); BARBITURATES, URINE NEG (NEG); COCAINE, URINE NEG (NEG)
[2017-06-02 15:36] LABS: ALKALINE PHOSPHATASE 65 U/L (45-117); TOTAL BILIRUBIN ADULT 0.4 MG/DL (0.2-1.0)
[2017-06-02] MEDS ORDERED: NICOTINE 21 MG/24 HR PATCH T-DERMAL ONE (19:45)
[2017-06-02] MEDS ORDERED: ATOM40 PO (20:13)
[2017-06-02] MEDS ORDERED: DEPA500T3 PO (20:13)
[2017-06-02] MEDS ORDERED: DIVALPROEX SODIUM E.R. 500 MG TAB PO SCH (21:00)
[2017-06-02] MEDS: busPIRone HCL 10 MG TAB PO SCH (21:49)
[2017-06-03] MEDS ORDERED: hydrOXYzine PAMOATE 25 MG CAP PO ONE
[2017-06-03 02:17] VITALS: BP 143/84; PULSE 78; RESP 20; O2SAT 99
[2017-06-03] MEDS: busPIRone HCL 10 MG TAB PO SCH (06:00)
[2017-06-03 10:43] VITALS: BP 142/84; PULSE 100; RESP 18
--- NOTE | 2017-06-03 10:43 | PD ---
History of Present Illness Chief Complaint: Suicide Ideation/Attempt Time Seen by Provider: 10:30 Travel History International Travel<30 Days: No Contact w/Intl Traveler<30days: No Known affected area: No Legal Status Legal Status: Voluntary History of Present Illness: History of Present Illness HPI The patient is a 36-year-old male with a reported history of ADHD and bipolar disorder who presents to the emergency department via private vehicle as a voluntary for psychiatric evaluation. He is complaining of his " brain feeling funny" after he restarted his psychiatric medications after being off them for 2 weeks. He also reported not being able to sleep and wanted to get a prescription for Vistaril and Buspar which have helped him in the past. He then states " I told them I was thinking of killing myself so that I could be seen. I knew if I didn't say that I would not be seen". He reports that he receives outpatient care at [facility] but has been having trouble getting the above medications because his provider feels that he is taking other medications and has not agreed to prescribe them. he also tells me that he has missed an appointment and needs to go back to restart his care. EMR is reviewed. Toxicology is negative. VPA level is 23. No previous contact with psychiatry dept at [facility]. The patient was monitored in J pod and presented no behavioral concerns and no suicidality. He is calm, cooperative. Speech is clear and logical. There is no evidence of any hallucinations. Denies delusions. Denies any suicidal or homicidal ideation, intent or plan. he reports he slept well last night and feels much better. He is requesting discharge [facility] Past Medical History Bipolar Disorder: Yes (ANGER ISSUES ALSO PER PT) Cardiovascular Problems: Yes (HIGH CHOLESTEROL, HTN) High Cholesterol: Yes Hypertension: Yes Immunizations Current: Yes Past Surgical History Surgical History: No Previous Surgery Psychiatric History Psychiatric History Hx Psychiatric Treatment: OUTPATIENT AT [facility] FOR BIPOLAR AND ADHD. DIAGNOSED IN [place]. REPORTS HISTORY OF DIALLO AND ANGER Reports previous sucide attempt by hanging and cutting his wrists. 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 Hx Alcohol Use: Yes Hx Tobacco Use: Yes Hx Substance Use: No (PAST HISTORY) Substance Use Type: Alcohol, Marijuana, Prescription Medications, Benzos ( Valium,Xanax), Heroin, Synth Opiates-Pain Pills Hx of Substance Use Treatment: No Family Psychiatric History None reported. Allergies-Medications (Allergen,Severity, Reaction): Coded Allergies: No Known Allergies (Verified , 05/09/17) Reported Meds & Prescriptions Reported Meds & Active Scripts Active Reported Depakote ER (Divalproex Sodium) 500 Mg Yoselin 500 Mg PO HS Strattera (Atomoxetine HCl) 40 Mg Cap 40 Mg PO DAILY Review of Systems Except as stated in HPI: all other systems reviewed are Neg Exam Alert: Yes [place]: Person (ox4) Mood: Calm Affect: Appropriate Speech: Clear, Logical Eye Contact: Normal Memory Intact: Comment (No impairmetn) Hallucinations: Other (Negative) Delusions: No Suicidal: Ideation (denies any) Homicidal: Ideation (Deneis any) Insight/Judgement Poor. Not impaired MDM Medical Decision Making Medical Record Reviewed: Yes Assessment/Plan HPI The patient is a 36-year-old male with a reported history of ADHD and bipolar disorder who presents to the emergency department via private vehicle as a voluntary for psychiatric evaluation. He is complaining of his " brain feeling funny" after he restarted his psychiatric medications after being off them for 2 weeks. He also reported not being able to sleep and wanted to get a prescription for Vistaril and Buspar which have helped him in the past. The patient received medication and slept well. he is requesting discharge this morning and is reporting he " only said I was going to kill myself in order to be see". He denies any suicidal or homicidal ideation, intent or plan. He will be released. He is encouraged to follow up with [facility]. Orders Complete Blood Count With Diff (06/02/17 14:25) Comprehensive Metabolic Panel (06/02/17 14:25) Valproic Acid (Depakene) (06/02/17 14:25) Psych Screen (06/02/17 14:25) Drug Screen, Random Urine (06/02/17 14:25) Alcohol (Ethanol) (06/02/17 14:25) Nicotine 21 Mg Patch.24 Hr (Habitrol 21 (06/02/17 19:45) Divalproex Er (Depakote Er) (06/02/17 21:00) Buspirone (Buspar) (06/02/17 22:00) Hydroxyzine Pamoate (Vistaril) (06/03/17 00:00) Diet Regular Basic (06/03/17 Breakfast) Results Vital Signs Date Time Temp Pulse Resp B/P Pulse Ox O2 Delivery O2 Flow Rate FiO2 06/03/17 02:17 78 20 143/84 99 06/02/17 14:49 100 Room Air 06/02/17 14:10 98.2 108 15 178/92 99 Laboratory Tests Test 06/02/17 14:40 White Blood Count 9.1 Red Blood Count 5.93 Hemoglobin 16.3 Hematocrit 47.6 Mean Corpuscular Volume 80.3 Mean Corpuscular Hemoglobin 27.5 Mean Corpuscular Hemoglobin 34.2 Concent Red Cell Distribution Width 13.0 Platelet Count 235 Mean Platelet Volume 8.7 Neutrophils (%) (Auto) 67.7 Lymphocytes (%) (Auto) 21.2 Monocytes (%) (Auto) 7.2 Eosinophils (%) (Auto) 2.6 Basophils (%) (Auto) 1.3 Neutrophils # (Auto) 6.2 Lymphocytes # (Auto) 1.9 Monocytes # (Auto) 0.7 Eosinophils # (Auto) 0.2 Basophils # (Auto) 0.1 CBC Comment DIFF FINAL Differential Comment Sodium Level 138 Potassium Level 4.0 Chloride Level 103 Carbon Dioxide Level 25.4 Anion Gap 10 Blood Urea Nitrogen 8 Creatinine 0.92 Estimat Glomerular Filtration 93 Rate Random Glucose 94 Calcium Level 9.4 Total Bilirubin 0.4 Aspartate Amino Transf 16 (AST/SGOT) Alanine Aminotransferase 59 (ALT/SGPT) Alkaline Phosphatase 65 Total Protein 7.7 Albumin 4.0 Urine Opiates Screen NEG Urine Barbiturates Screen NEG Valproic Acid (Depakene) Level 23 Urine Amphetamines Screen NEG Urine Benzodiazepines Screen NEG Urine Cocaine Screen NEG Urine Cannabinoids Screen NEG Ethyl Alcohol Level LESS THAN 3 Diagnosis Primary Impression: Depressive disorder Additional Impression: Adjustment disorder Psychiatrically Cleared: Yes Departure Forms: Tests/Procedures Patient Instructions: General Instructions Additional Instructions: return to ED if symptoms reoccur Med/ Other Pt Specific Info: No Change to Meds, No Meds Exist/No RX given Disposition: 01 DISCHARGE HOME Condition: Stable Problem Qualifiers Additional Impression: Adjustment disorder Qualified Code: F43.21 - Adjustment disorder with depressed mood Larissa Murcia Jun 03, 2017 10:43
[2017-06-03 11:04] VITALS: BP 142/84
== END 2017-06-03 11:05 | disposition home or self-care (01) ==
LOC: NEPD 14:08 → NEPJ 06-03 11:05
DX: F43.20 Adjustment disorder, unspecified (principal); F32.9 Major depressive disorder, single episode, unspecified; I10 Essential (primary) hypertension; E78.00 Pure hypercholesterolemia, unspecified; Z87.891 Personal history of nicotine dependence
CPT/HCPCS: 80053; 80164; 80307; 85025; 99283; Q0177

== ENCOUNTER 2018-03-22 13:57 | Emergency (ER) | payer OTHER ==
[~2018-03-22] VITALS: Ht 177.8 cm; Wt 79.0 kg
[~2018-03-22 13:57] MED LIST changes: +ATOM40 PO; +DEPA500T3 PO; -MOBI15TA PO; -ROBA750T PO; -TAMS5CAP PO; -ZOFR4TAB3 SL
[2018-03-22 13:59] VITALS: BP 145/90; PULSE 80; RESP 16; TEMP 97.4; O2SAT 98
[2018-03-22] MEDS ORDERED: [UNRECOGNIZED DRUG - REMARK] (14:11)
[2018-03-22] MEDS ORDERED: [UNRECOGNIZED DRUG - REMARK] (14:11)
[2018-03-22] MEDS ORDERED: [UNRECOGNIZED DRUG - REMARK] (14:11)
--- NOTE | 2018-03-22 14:42 | PD ---
HPI Chief Complaint: Cold / Flu Symptoms Time Seen by Provider: 14:14 Travel History International Travel<30 days: No Contact w/Intl Traveler<30days: No Traveled to known affect area: No History of Present Illness HPI 37 year-old male presents to the emergency room for evaluation of sinus pressure , nasal congestion, mildly nonproductive cough, and left earache for the past 2 days. Symptoms significantly worsened today. Patient states a coworker is sick and coughed in his face. He has not taken anything for his symptoms. He has history significant for MA 5 months ago. Patient admits to doing cocaine previously but quit. Patient went from smoking 5 packs of cigarettes per day to 1 one per day. PFSH Past Medical History Bipolar Disorder: Yes (ANGER ISSUES ALSO PER PT) Cardiovascular Problems: Yes (HIGH CHOLESTEROL, HTN) High Cholesterol: Yes Coronary Artery Disease: Yes Hypertension: Yes Immunizations Current: Yes Past Surgical History Coronary Artery Bypass Graft: Yes Social History Alcohol Use: Yes Tobacco Use: Yes (1PPD) Substance Use: No (PAST HISTORY) Allergies-Medications (Allergen,Severity, Reaction): Coded Allergies: No Known Allergies (Verified Adverse Reaction, Unknown, 03/22/18) Reported Meds & Prescriptions Reported Meds & Active Scripts Active Reported ["Cholesterol Pill"] ["Heart Pill"] ["Blood Thinner"] Review of Systems Except as stated in HPI: all other systems reviewed are Neg Physical Exam Narrative GENERAL: Well-nourished, well-developed male in no acute distress. Afebrile. Ambulatory. SKIN: Focused skin assessment warm/dry. HEAD: Normocephalic. EYES: No scleral icterus. No injection or drainage. ENT: Mucosa pink and moist. No erythema or exudates. No uvular edema. No uvular , palatal, or tonsillar deviation. Airway patent. Nasal turbinates appear normal without nasal blood, purulent drainage or septal hematoma. EARS: Bilateral pinnae and external canals appear within normal limits. Bilateral tympanic membranes without erythema, dullness or perforation. NECK: Supple, trachea midline. No JVD or lymphadenopathy. CARDIOVASCULAR: Regular rate and rhythm without murmurs, gallops, or rubs. RESPIRATORY: Breath sounds equal bilaterally. No accessory muscle use. No crackles, rales, wheezes, or rhonchi. Data Data Last Documented VS Vital Signs Date Time Temp Pulse Resp B/P (MAP) Pulse Ox O2 Delivery O2 Flow Rate FiO2 03/22/18 13:59 97.4 80 16 145/90 (108) 98 MDM Medical Decision Making Medical Screen Exam Complete: Yes Emergency Medical Condition: Yes Medical Record Reviewed: Yes Differential Diagnosis URI, pneumonia, bronchitis, ear infection, strep throat Narrative Course 37-year-old male presents to the emergency room for evaluation of cold symptoms that started yesterday. Patient is status-post open-heart surgery 5 months ago after having an MA. Symptoms mostly consist of nasal congestion, sinus pressure , and left-sided earache. He is afebrile well-appearing in the emergency room. Physical exam is unremarkable. Vital signs stable. Patient was informed this is likely viral. Told to follow-up with a primary care physician or return to the emergency room for worsening symptoms. He understands and agrees to plan. Diagnosis Primary Impression: URI (upper respiratory infection) Qualified Codes: J00 - Acute nasopharyngitis [common cold] Referrals: Primary Care Physician Departure Forms: Tests/Procedures, Work Release Enter return to work date: March 24, 2018 Additional Instructions: Rest and drink plenty of fluids. Take [id number] cough and cold medications without pseudoephedrine. You may take Robitussin, Coricidin HBP, and regular Claritin without pseudoephedrine. Follow-up with a primary care physician. Return to the emergency room for worsening symptoms. Med/Other Pt SpecificInfo: Prescription(s) given Disposition: 01 DISCHARGE HOME Condition: Stable Lizy Amos March 22, 2018 14:42
== END 2018-03-22 14:54 | disposition home or self-care (01) ==
LOC: PHEFT 13:57
DX: J06.9 Acute upper respiratory infection, unspecified (principal); R05 Cough; H92.02 Otalgia, left ear; I10 Essential (primary) hypertension; F17.210 Nicotine dependence, cigarettes, uncomplicated
CPT/HCPCS: 99282